=== PATIENT | male | born 1970 | race Caucasian/White ===

== ENCOUNTER 2017-05-06 20:20 | Emergency (ER) | payer MEDICAID ==
[~2017-05-06] VITALS: Ht 180.3 cm; Wt 88.5 kg
[~2017-05-06 20:20] MED LIST: BUPRTAB3; TRAZ50TA2
[2017-05-06 21:21] LABS: Urine RBC None Seen /hpf (0 - 3)
[2017-05-06 21:39] LABS: Basophils # (auto) 0 uL; Basophils % (auto) 0.6 % (0.0-2.0); Eosinophils # (auto) 0.4 uL; Eosinophils % (auto) 4.4 % (0.0-7.0); Hematocrit 42.5 % (41.0-53.0); Hemoglobin 14.2 g/dL (13.5-17.5); Lymphocytes # (auto) 1.8 uL; Lymphocytes % (auto) 21.1 % (10.0-50.0); Mean Corpuscular Hemoglobin 29.4 pg (28.0-32.0); Mean Corpuscular Hgb Conc. 33.5 g/dL (32.0-36.0); Mean Corpuscular Volume 87.8 fL (80.0-100.0); Mean Platelet Volume 9.3 fL (7.4-10.4); Monocytes # (auto) 0.7 uL; Monocytes % (auto) 8.7 % (0.0-12.0); Neutrophils # (auto) 5.6 uL; Neutrophils % (auto) 65.2 % (37.0-80.0); Platelet Count (auto) 282 10^3/uL (140-450); Red Cell Distribution Width 13.7 % (11.6-16.0); White Blood Cell 8.6 10^3/uL (4.4-10.8)
[2017-05-06 21:43] LABS: Urine Bilirubin Negative (Negative); Urine Blood Negative /uL (Negative); Urine Color Yellow (Yellow); Urine Glucose Normal (Normal); Urine Ketone Negative (Negative); Urine Nitrite Negative (Negative); Urine Urobilinogen Normal (Negative); Urine pH 5.5 (5.0-8.0)
[2017-05-06 21:48] LABS: Chloride 105 mmol/L (98-107); Potassium 4.1 mmol/L (3.5-5.1); Sodium 139 mmol/L (136-145)
[2017-05-06 21:53] LABS: Albumin 3.5 g/dL (3.4-5.0); Amylase 37 U/L (25-115); Anion Gap 12 (5-15); BUN/Creatinine Ratio 25.6; Blood Urea Nitrogen 23 mg/dL (7-18); Carbon Dioxide 22 mmol/L (21-32); GFR African American 116 mL/min; GFR Non-African American 96 mL/min; Glucose 115 mg/dL (74-106); Magnesium 2.1 mg/dL (1.6-2.6)
[2017-05-06 21:59] LABS: Alkaline Phosphatase 134 U/L (45-117); Aspartate Aminotransferase 19 U/L (15-37); Bilirubin, Total 0.2 mg/dL (0.2-1.0); Total Protein 7.8 g/dL (6.4-8.2)
[2017-05-06 22:02] LABS: INR 0.94 (0.9-1.15); Partial Thromboplastin Time 29.4 sec (22.64-33.71); Prothrombin Time 10.2 sec (9.37-12.3)
[2017-05-07 00:19] VITALS: BP 127/89
== END 2017-05-07 03:24 | disposition home or self-care (01) ==
LOC: ER 20:24
DX: K92.1 Melena (principal); J45.909 Unspecified asthma, uncomplicated; I10 Essential (primary) hypertension; Z88.0 Allergy status to penicillin; Z79.899 Other long term (current) drug therapy
CPT/HCPCS: 36415; 80053; 81001; 82150; 83690; 83735; 84484; 85025; 85610; 85730; 93005

== ENCOUNTER 2025-07-31 14:34 | Emergency (ER) | payer MEDICAID, OTHER ==
[~2025-07-31] VITALS: Ht 180.3 cm; Wt 95.0 kg
[~2025-07-31 14:34] MED LIST changes: +TRAZ-227; -TRAZ50TA2
[2025-07-31 15:02] VITALS: BP 125/80; PULSE 110; RESP 16; TEMP 98.4; O2SAT 94
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
== END 2025-07-31 19:09 | disposition left against medical advice (07) ==
LOC: EDBD 14:34 → ER 14:34
DX: S01.81XA Laceration without foreign body of other part of head, initial encounter (principal); M54.50 Low back pain, unspecified; I10 Essential (primary) hypertension; F41.9 Anxiety disorder, unspecified; E78.5 Hyperlipidemia, unspecified; F17.210 Nicotine dependence, cigarettes, uncomplicated; F32.A Depression, unspecified; J45.909 Unspecified asthma, uncomplicated; Z79.899 Other long term (current) drug therapy; Z88.0 Allergy status to penicillin; Y04.8XXA Assault by other bodily force, initial encounter; Y93.89 Activity, other specified; Y92.89 Other specified places as the place of occurrence of the external cause; Y99.8 Other external cause status